=== PATIENT | male | born 1945 | race Caucasian/White ===

== ENCOUNTER → 2017-01-03 | Outpatient (CLI) | payer MEDICARE ==
[~2017-01-03] MED LIST: ALLO100T PO; AMAR4TAB PO; CALCTAB33 PO; FURO1TAB60 PO; LISI-515 PO; METF1000 PO; NOVONP2 SQ; OMEP20TA PO; ONGL5TAB PO; PIOG15TA5 PO; RANI150C PO; XARE20TA PO
[2017-01-03 08:39] LABS: BLOOD GAS BASE EXCESS -1.3 mmol/L (-2-2); BLOOD GAS CARBOXYHEMOGLOBIN 1.5 % (0-4); BLOOD GAS HCO3 23 mmol/L (22-26); BLOOD GAS METHEMOGLOBIN 1.1 % (0-2); BLOOD GAS O2 HGB SATURATION 93 % (90-100); BLOOD GAS OXYGEN CONTENT 16.8 Vol % (12.0-20.0); BLOOD GAS PCO2 37 mmHg (38-42); BLOOD GAS PO2 80 mmHg (61-120); BLOOD GAS TOTAL HGB 12.7 G/DL (12.0-16.0); CRITICAL VALUE NO; DRAW SITE RT RADIAL; FIO2 21 %; NUMBER OF ARTERIAL PUNCTURES 1; TEMP CORR TO 98.6
[2017-01-03 08:40] LABS: STAT NO; ULNAR PULSE PRESENT
--- NOTE | 2017-01-05 09:39 | RSPPFT ---
DATE OF PROCEDURE: 01/03/17 COMMENTS: VOLUMES DYNAMC: FVC and FEV1 normal. FLOWS: FEV1% and FEF 25-75 normal. IMPRESSION: Normal simple spirometry with no significant improvement post-bronchodilator.
== END ==
LOC: HRSP 07:40
PROVIDERS: ATTEND Internal Medicine
DX: J44.9 Chronic obstructive pulmonary disease, unspecified (principal)
CPT/HCPCS: 36600; 82805; 94060; 94620; 94726; 94729

== ENCOUNTER → 2017-06-12 | Day surgery (SDC) | payer MEDICARE ==
[~2017-06-12] MED LIST changes: +LACTATED RINGER'S 1000 ML INJ 1,000 ML ONE; +PROPOFOL 200 MG/20 ML AMP IV ONE
--- NOTE | 2017-06-12 11:05 | GIPROC ---
[facility] [address] [facility], [address] EGD PROCEDURE REPORT EXAM DATE: 06/12/2017 PATIENT NAME: Hipolito Hannah MR #: [id number] BIRTHDATE: 1945 ATTENDING: Elizabeth Ward MD ORDER #: [id number] EDUCATIONAL ADMINISTRATOR: STATUS: outpatient INDICATIONS: The patient is a 71 yr old male here for an EGD due to surveillance Waite's PROCEDURE PERFORMED: EGD w/ biopsy MEDICATIONS: None and Per Anesthesia. TOPICAL ANESTHETIC: none CONSENT: The patient understands the risks and benefits of the procedure and understands that these risks include, but are not limited to: sedation, allergic reaction, infection, perforation and/or bleeding. Alternative means of evaluation and treatment include, among others: physical exam, x-rays, and/or surgical intervention. The patient elects to proceed with this endoscopic procedure. medical equipment was checked for proper function. Hand hygiene and appropriate measures for infection prevention was taken. After the risks, benefits and alternatives of the procedure were thoroughly explained, Informed consent was verified, confirmed and timeout was successfully executed by the treatment team. The patient was anesthetized with topical anesthesia and the EC-2990Li ([id number]) endoscope was introduced through the mouth and advanced to the second portion of the duodenum. Retroflexed views revealed a hiatal hernia The gastroscope was then slowly withdrawn and removed. Surgical [facility] has history of multiple bariatric surgeries gastritis -antrum some retained food in upper part of stomach Few small areas of Waite's mucosa -NBI scope used -no dysplasia -biopsies from 40, 38, 36 cm done. ADVERSE EVENTS: There were no complications. IMPRESSIONS: 1. [facility] has history of multiple bariatric surgeries gastritis -antrum some retained food in upper part of stomach Few small areas of Waite's mucosa -NBI scope used -no dysplasia -biopsies from 40, 38, 36 cm done 2. Retroflexed views revealed a hiatal hernia RECOMMENDATIONS: 1. Await biopsy results. Biopsy results will not be ready for 7-10 days. If you don't hear from us in two weeks, call our office for biopsy results. 2. Anti-reflux regimen 3. Continue PPI 4. Cryoablation of remaining Waite's PATIENT CONDITION: stable DISPOSITION: Home REPEAT EXAM: EGD pending biopsy results Elizabeth Ward MD eSigned: Elizabeth Ward MD 06/12/2017 11:04 AM cc: Flory Govea PATIENT NAME: Hipolito Hannah MR#: [id number]
== END | disposition home or self-care (01) ==
LOC: ESDC 08:24
PROVIDERS: ATTEND Internal Medicine Gastroenterology
DX: K22.70 Barrett's esophagus without dysplasia (principal); K44.9 Diaphragmatic hernia without obstruction or gangrene; K29.70 Gastritis, unspecified, without bleeding; Z98.84 Bariatric surgery status; E11.9 Type 2 diabetes mellitus without complications; Z79.4 Long term (current) use of insulin
CPT/HCPCS: 00740; 43239; 82948; 88305; 88312; J7120

== ENCOUNTER → 2017-09-19 | Outpatient (CLI) | payer MEDICARE ==
[~2017-09-19] VITALS: Ht 190.5 cm; Wt 178.0 kg
[~2017-09-19] MED LIST changes: +CHLORHEXIDINE GLUCONATE 2 % 1 PACK (2 CLOTHS) TOPICAL PRN; +DEXTROSE 5%-LACTATED RING INJ 1,000 ML IV SCH; +INSULIN HUMAN REGULAR 1,000 UNITS/10 ML VIAL SQ PRN; -LACTATED RINGER'S 1000 ML INJ 1,000 ML ONE; +LACTATED RINGER'S 1000 ML IV PRN; +LIDOCAINE HCL 1% PF 5 ML SYRINGE OTHER ONE; +METO25TA3 PO; +METOPROLOL TARTRATE 25 MG TAB PO PRN; -OMEP20TA PO; +OMEP20TA93 PO; +POVIDONE IODINE 5% (ANTISEPSIS KIT) 4 APPLICATIONS EACH NARE PRN; +SODIUM CHLORID 0.9% 500 ML IV PRN
[2017-09-19 11:50] VITALS: BP 111/53; PULSE 74; RESP 20; TEMP 97.1; O2SAT 95
--- NOTE | 2017-09-19 11:58 | GIPROC ---
[facility] [address] [facility] [facility], [address] EGD WITH HALO PROCEDURE REPORT EXAM DATE: 09/19/2017 PATIENT NAME: Hipolito Hannah MR #: [id number] BIRTHDATE: 1945 ORDER #: [id number] ATTENDING: Elizabeth Ward MD STRAWHAT BLOCKING OPERATOR: Arnaldo Negrete and Angela Dewey STATUS: outpatient INDICATIONS: The patient is a 72 yr old male here for an EGD with cryoablation ablation due to Waite's PROCEDURE PERFORMED: esophagoscopy with cryoabaltion egd with cryoablation MEDICATIONS: None and Per Anesthesia. TOPICAL ANESTHETIC: none CONSENT: The patient understands the risks and benefits of the procedure and understands that these risks include, but are not limited to: sedation, allergic reaction, infection, perforation and/or bleeding. Alternative means of evaluation and treatment include, among others: physical exam, x-rays, and/or surgical intervention. The patient elects to proceed with this endoscopic procedure. DESCRIPTION OF PROCEDURE: checked for proper function. Hand hygiene and appropriate measures for infection prevention was taken. After the risks, benefits and alternatives of the procedure were thoroughly explained, Informed consent was verified, confirmed and timeout was successfully executed by the treatment team. The [employer] EG-2990i endoscope was introduced through the mouth and advanced to the eg junction . The mucosa was examined both on insertion and withdrawal. Retroflexion was performed in the gastric fundus. The area of the Waite's esophagus was mapped. The gastroscope was introduced along with the cryoablation device was attached to the tip of the gastroscope, which was re-introduced into the esophagus under direct visualization. Cryoablation device was directed to the targeted area of Waite's esophagus. With the targeted area in 12 o' clock position with the endoscopic view, energy was applied Esophagoscopy confirmed complete ablation of all intestinal metaplasia. Rest of the findings are given below. The patient tolerated the procedure well and was sent to Recovery in stable condition. Waite's esophagus distal esophagus s/p cryoablation. ADVERSE EVENTS: There were no complications. IMPRESSIONS: Waite's esophagus distal esophagus s/p cryoablation RECOMMENDATIONS: 1. Await biopsy results. Biopsy results will not be ready for 7-10 days. If you don't hear from us in two weeks, call our office for biopsy results. 2. Anti-reflux regimen 3. Continue PPI 4. Full liquid diet REPEAT EXAM: Return 6 weeks EGD Elizabeth Ward MD eSigned: Elizabeth Ward MD 09/19/2017 11:57 AM cc: Dick Macdonald M.D. PATIENT NAME: Camden Hipolito Cesia MR#: [id number]
[2017-09-19 12:40] VITALS: BP 118/59; PULSE 71; RESP 18; TEMP 97.1; O2SAT 99
--- NOTE | 2017-09-19 17:13 | EKG ---
Date Performed: 09/19/2017 Time Performed: 09:28:02 PTAGE: 72 years EKG: Sinus rhythm WITH FIRST DEGREE AV BLOCK BORDERLINE LEFT AXIS DEVIATION MODERATE INTRAVENTRICULAR CONDUCTION DELAY WHEN COMPARED TO PRIOR EKG THE PATIENT IS NO LONGER IN ATRIAL FIBRILLATION. ABNORMAL ECG PREVIOUS TRACING : 11/01/2011 17.43 DOCTOR: Kassie Lowry Interpretating Date/Time 09/19/2017 17:12:19
== END ==
LOC: HEND 08:51
PROVIDERS: ATTEND Internal Medicine Gastroenterology
DX: K22.70 Barrett's esophagus without dysplasia (principal); I10 Essential (primary) hypertension; I48.91 Unspecified atrial fibrillation
CPT/HCPCS: 43270; 46930; 93005

== ENCOUNTER → 2017-12-11 | Day surgery (SDC) | payer MEDICARE ==
[~2017-12-11] MED LIST changes: +ACETYLCYSTEINE 20% 6,000 MG/30 ML ORAL SOLN VIAL ONE; -CHLORHEXIDINE GLUCONATE 2 % 1 PACK (2 CLOTHS) TOPICAL PRN; -DEXTROSE 5%-LACTATED RING INJ 1,000 ML IV SCH; -INSULIN HUMAN REGULAR 1,000 UNITS/10 ML VIAL SQ PRN; +LACTATED RINGER'S 1000 ML INJ 1,000 ML ONE; -LACTATED RINGER'S 1000 ML IV PRN; -LIDOCAINE HCL 1% PF 5 ML SYRINGE OTHER ONE; -METOPROLOL TARTRATE 25 MG TAB PO PRN; -POVIDONE IODINE 5% (ANTISEPSIS KIT) 4 APPLICATIONS EACH NARE PRN; -PROPOFOL 200 MG/20 ML AMP IV ONE; +PROPOFOL 500 MG/50 ML BTL IV ONE; -SODIUM CHLORID 0.9% 500 ML IV PRN; +SODIUM CHLORIDE 0.9% 20 ML VIAL ONE; +SODIUM CHLORIDE 0.9% INJ 0 ML ONE; +STERILE WATER FOR INJECTION 20 ML VIAL ONE
--- NOTE | 2017-12-11 13:58 | GIPROC ---
[facility] [address] [facility], [address] EGD WITH HALO PROCEDURE REPORT EXAM DATE: 12/11/2017 PATIENT NAME: Hipolito Hannah MR #: [id number] BIRTHDATE: 1945 ORDER #: [id number] ATTENDING: Elizabeth Ward MD CISCO NETWORK ENGINEER: Tanja Roberts STATUS: outpatient INDICATIONS: The patient is a 72 yr old male here for an EGD with HALO90 ablation due to dheeraj's PROCEDURE PERFORMED: esophagoscopy with RFA using Channel RRFA endoscopic catheter MEDICATIONS: None and Per Anesthesia. TOPICAL ANESTHETIC: none CONSENT: The patient understands the risks and benefits of the procedure and understands that these risks include, but are not limited to: sedation, allergic reaction, infection, perforation and/or bleeding. Alternative means of evaluation and treatment include, among others: physical exam, x-rays, and/or surgical intervention. The patient elects to proceed with this endoscopic procedure. DESCRIPTION OF PROCEDURE: checked for proper function. Hand hygiene and appropriate measures for infection prevention was taken. After the risks, benefits and alternatives of the procedure were thoroughly explained, Informed consent was verified, confirmed and timeout was successfully executed by the treatment team. The EC-2990i ([id number]) endoscope was introduced through the mouth and advanced to the gastroesophageal junction. The mucosa was examined both on insertion and withdrawal. Retroflexion was performed in the gastric fundus. The area of the Waite's esophagus was mapped. The esophagus was irrigated with 1% N-acetylcysteine (Mucomyst) to clear the mucous layer from the lining of the esophagus and to facilitate energy delivery. The gastroscope was removed and HALO-90 ablation device was attached to the tip of the gastroscope, which was re-introduced into the esophagus under direct visualization. HALO-90 device was directed to the targeted area of Waite's esophagus. With the targeted area in 12 o' clock position with the endoscopic view, radiofrequency energy was applied twice at the same site (300 W and 12 J/cm2). The ablated zone was scrapped with the tip of the HALO-90 device to remove the coagulative debris. The gastroscope was removed and the HALO-90 device was cleaned. The gastroscope was reintroduced with the HALO-90 device and the targeted areas were treated with radiofrequency energy two more times. (Total of four application in one region). The gastroscope was inserted into the stomach, the gastric contents were suctioned and the ablation zone was inspected. Esophagoscopy confirmed complete ablation of all intestinal metaplasia. Rest of the findings are given below. The patient tolerated the procedure well and was sent to Recovery in stable condition. Few small areas of Waite's at GE junction treated as per protocol small diverticulum midesophagus. ADVERSE EVENTS: There were no complications. IMPRESSIONS: Few small areas of Waite's at GE junction treated as per protocol small diverticulum midesophagus RECOMMENDATIONS: Soft diet Ba swallow consider EUS basd on the above results REPEAT EXAM: Return 6 months as needed for EGD plus minus eus/Barrx or cryoablation based on Ba swallow results Elizabeth Ward MD eSigned: Elizabeth Ward MD 12/11/2017 1:58 PM cc: Dick Moise PATIENT NAME: Hipolito Hannah MR#: [id number]
== END | disposition home or self-care (01) ==
LOC: ESDC 10:38
PROVIDERS: ATTEND Internal Medicine Gastroenterology
DX: K22.70 Barrett's esophagus without dysplasia (principal); E11.9 Type 2 diabetes mellitus without complications; Z79.4 Long term (current) use of insulin
CPT/HCPCS: 00731; 43229; 82948; J3010; J7120

== ENCOUNTER → 2018-01-03 | Day surgery (SDC) | payer MEDICARE ==
[~2018-01-03] MED LIST changes: -ACETYLCYSTEINE 20% 6,000 MG/30 ML ORAL SOLN VIAL ONE; +DULO1CAP3 PO; -LACTATED RINGER'S 1000 ML INJ 1,000 ML ONE; +LIDOCAINE HCL 1% PF 30 ML VIAL INFIL ONE; +MEPERIDINE HCL 25 MG/ML VIAL IV ONE; +MEPERIDINE HCL 50 MG/ML VIAL IV ONE; +MIDAZOLAM HCL 2 MG/2 ML VIAL IV ONE; +PROPOFOL 200 MG/20 ML AMP IV ONE; -PROPOFOL 500 MG/50 ML BTL IV ONE; +SODIUM CHLORIDE 0.9% 10 ML VIAL ONE; -SODIUM CHLORIDE 0.9% 20 ML VIAL ONE; -SODIUM CHLORIDE 0.9% INJ 0 ML ONE; -STERILE WATER FOR INJECTION 20 ML VIAL ONE; +methylPREDNISolone ACETATE 40 MG/ML VIAL I-ARTICULR ONE
--- NOTE | 2018-01-03 13:00 | RADRPT ---
EXAM DATE/TIME: 01/03/2018 12:34 [facility] COMPARISON: No previous studies available for comparison. INDICATIONS : Right knee pain post fall. MEDICAL HISTORY : None. SURGICAL HISTORY : Total knees. ENCOUNTER: Initial ACUITY: 1 day PAIN SCORE: 0/10 LOCATION: Right knee FINDINGS: 2 views of the knee show a total knee prosthesis in good position. No fracture or dislocation is obse rved. Soft tissue swelling is noted. 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 No acute abnormality. Eliel Jacobsen Jr., MD on January 03, 2018 at 12:56 Board Certified Radiologist. This report was verified electronically.
--- NOTE | 2018-01-03 13:03 | RADRPT ---
EXAM DATE/TIME: 01/03/2018 12:34 [facility] COMPARISON: No previous studies available for comparison. INDICATIONS : Right hip pain post fall. MEDICAL HISTORY : None. SURGICAL HISTORY : total knees. ENCOUNTER: Initial ACUITY: 1 day PAIN SCORE: 0/10 LOCATION: Right hip FINDINGS: Examination of the right hip was performed with AP Pelvis. The primary and secondary trabecular amber verenice of the femoral neck is intact. Degenerative changes are noted more prominently on the right. The acetabulum is grossly intact. CONCLUSION: 1. No acute fracture or dislocation. Faheem Lamas MD on January 03, 2018 at 12:58 Board Certified Radiologist. This report was verified electronically.
--- NOTE | 2018-01-05 13:25 | M6 ---
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 The patient reported 50% or greater pain relief from previous diagnostic facet joint blocks done with fluoroscopic guidance. PROCEDURE NOTE History and physical was completed and signed. Consent was signed. Procedure site was marked. Medications were listed and reconciled. Pain score was recorded. Allergies were noted. Time out was taken. Fluoroscopy time was recorded where applicable. Sedation was administered or directed by Dr. Padilla. The patient was given oxygen. The patient was monitored by a registered nurse. Total procedure time was greater than 15 minutes. An IV was started, blood pressure cuff, pulse oximeter and EKG were applied. The patient was placed in the prone position on a Kyle table, sedated with small amounts of Versed and fentanyl and Propofol titrated to effect. Vital signs were monitored and remained stable throughout the procedure. The lumbar area was scrubbed with antimicrobial solution, prepped with 10% Betadine solution, draped with sterile drapes. Fluoroscopy was used in a slightly oblique angle (Horacio dog view) to clearly visualize the target areas which were the cephalad most medial angle of the transverse processes as they met the pedicle in the anatomical location of the medial branch of the posterior primary ramus on the right L3-4, L4-5 and L5-S1 fact joints. The skin was infiltrated with 1% Xylocaine using a 27 gauge needle. An insulated 20 gauge radiofrequency needle with a 10 mm curved tip was advanced to the above-mentioned target areas. Fluoroscopy was used to confirm the needle was properly placed and not near the nerve root. At no time did the patient report any paresthesias down the lower extremity. Once properly positioned thermal lesions took place at 80 degrees Centigrade x 100 seconds at each location. Then, a small amount of Depo-Medrol was injected at each location for a total of 40 mg of Depo-Medrol. Following this the patient was taken to the recovery room with stable vital signs, neurologically intact. W. MD BJ Garrett/MELINA /7:50 AM /1:08 PM
== END | disposition home or self-care (01) ==
LOC: PHSDC 06:27
PROVIDERS: ATTEND Pain Medicine Interventional Pain Medicine
DX: M54.5 Low back pain (principal); I48.91 Unspecified atrial fibrillation; E11.9 Type 2 diabetes mellitus without complications; Z79.4 Long term (current) use of insulin
CPT/HCPCS: 64635; 64636; 73502; 73560; 99152; 99153; J1030; J2175; J2250